=== PATIENT | female | born 1955 | race Caucasian/White ===

== ENCOUNTER → 2017-09-15 | Outpatient (CLI) | payer BC | LOC: M RAD 12:16 | DX: J01.00 Acute maxillary sinusitis, unspecified (principal) | CPT/HCPCS: 70486 ==

== ENCOUNTER → 2017-11-07 | Outpatient (REF) | payer BC ==
[2017-11-09 14:39] LABS: HPV HYBRID CAPTURE II Negative (Negative)
== END ==
LOC: M SFHCCAPE 09:39
DX: Z01.419 Encounter for gynecological examination (general) (routine) without abnormal findings (principal); Z11.51 Encounter for screening for human papillomavirus (HPV); N95.2 Postmenopausal atrophic vaginitis
CPT/HCPCS: G0123

== ENCOUNTER → 2017-11-29 | Outpatient (CLI) | payer BC | LOC: M WHC 10:13 | DX: Z12.31 Encounter for screening mammogram for malignant neoplasm of breast (principal) | CPT/HCPCS: 77067 ==

== ENCOUNTER → 2018-01-05 | Outpatient (REF) | payer BC ==
[2018-01-05 17:34] LABS: IMMUNOGLOBULIN G 821 MG/DL (681-1648)
[2018-01-05 17:47] LABS: BASO % 0.3 % (0.0-1.0); EOS # 0.2 10^3/uL (0.0-0.50); EOS % 2.6 % (0.0-3.0); HEMATOCRIT 44.1 % (36.0-47.0); HEMOGLOBIN 13.9 g/dl (12.0-15.5); IMMATURE GRANULOCYTE % 0.3 % (0-3.0); LYMPH # 2.6 10^3/uL (1.5-4.5); LYMPH % 34.4 % (24.0-44.0); MEAN CORPUSCULAR HEMOGLOBIN 30.2 pg (27.0-33.0); MEAN CORPUSCULAR HGB CONC 31.5 g/dl (32.0-36.5); MEAN CORPUSCULAR VOLUME 95.7 fl (80.0-96.0); MONO # 0.4 10^3/uL (0.0-0.8); MONO % 5.4 % (0.0-5.0); NEUTROPHILS # 4.3 10^3/uL (1.8-7.7); PLATELET COUNT, AUTOMATED 227 10^3/uL (150-450); RED BLOOD COUNT 4.61 10^6/uL (4.00-5.40); RED CELL DISTRIBUTION WIDTH 14.1 % (11.5-14.5); WHITE BLOOD COUNT 7.6 10^3/uL (4.0-10.0)
[2018-01-05 18:02] LABS: IMMUNOGLOBULIN E < 3.6 IU/ML (<100)
[2018-01-05 22:17] LABS: RUBELLA IgG QUALITATIVE IMMUNE (IMMUNE)
[2018-01-11 14:18] LABS: ANTI TETANUS ANTIBODY 1.04 IU/mL (<0.10); IMMUNOGLOBULIN D 1.14 mg/dL (<14.11); STREP PNEUMO TYPE 12F <0.1 ug/mL (>1.3); STREP PNEUMO TYPE 19A 0.5 ug/mL (>1.3); STREP PNEUMO TYPE 19F 0.6 ug/mL (>1.3); STREP PNEUMO TYPE 23F 0.6 ug/mL (>1.3); STREP PNEUMO TYPE 3 0.1 ug/mL (>1.3); STREP PNEUMO TYPE 4 0.1 ug/mL (>1.3); STREP PNEUMO TYPE 6B 0.3 ug/mL (>1.3); STREP PNEUMO TYPE 7F 0.1 ug/mL (>1.3); STREP PNEUMO TYPE 8 <0.1 ug/mL (>1.3); STREP PNEUMO TYPE 9N <0.1 ug/mL (>1.3); STREP PNEUMO TYPE 9V 0.5 ug/mL (>1.3)
== END ==
LOC: M SMT PRO 17:03
DX: D84.9 Immunodeficiency, unspecified (principal); J31.0 Chronic rhinitis

== ENCOUNTER → 2018-01-18 | Outpatient (CLI) | payer BC | LOC: M EKG 11:13 | DX: Z01.818 Encounter for other preprocedural examination (principal) | CPT/HCPCS: 93005 ==

== ENCOUNTER 2018-01-25 08:58 | Day surgery (SDC) | payer BC ==
[2018-01-25] MEDS ORDERED: MIDAZOLAM INJ 2 MG/2 ML VIAL (J2250) As Ordered ×2 (09:26)
[2018-01-25] MEDS ORDERED: ONDANSETRON 4MG/2ML VIAL (J2405) As Ordered ×2 (09:27)
[2018-01-25] MEDS ORDERED: fentaNYL 100 MCG/2 ML INJECTION (J3010) As Ordered ×4 (09:27→12:44)
[2018-01-25] MEDS ORDERED: dexameTHASONE 4 MG/ML 1ML VIAL (J1100) As Ordered ×4 (09:27)
[2018-01-25] MEDS ORDERED: LIDOCAINE 2% INJ 100 MG/5 ML SDV (FOR ANES.) As Ordered ×2 (09:27)
[2018-01-25] MEDS ORDERED: PROPOFOL 200 MG/20 ML VIAL As Ordered ×2 (09:28)
[2018-01-25] MEDS: LR 1,000 ML IV ×4 (10:00→13:27)
[2018-01-25] MEDS ORDERED: SCOPOLAMINE 1MG TRANSDERMAL PATCH As Ordered ×2 (10:37)
[2018-01-25] MEDS: SCOPOLAMINE 1MG TRANSDERMAL PATCH TOP ×2 (10:42)
[2018-01-25] MEDS ORDERED: EPINEPHrine 1MG/ML INJ 30ML MD-VIAL As Ordered ×2 (12:20)
[2018-01-25] MEDS ORDERED: PHENYLephrine HCL 500 MCG/5 ML (100MCG/ML) SYRINGE (J2370) As Ordered ×2 (12:53)
[2018-01-25] MEDS: EPINEPHrine INJ 1 MG/ML 1ML AMP As Ordered ×2 (13:05)
[2018-01-25] MEDS: EPINEPHrine 1MG/ML INJ 30ML MD-VIAL As Ordered ×2 (13:05)
[2018-01-25] MEDS: METHYLENE BLUE 0.5% (5MG/ML) 10 ML AMP (PROVAYBLUE)(Q9968 PER 1MG) As Ordered ×2 (13:05)
[2018-01-25] MEDS ORDERED: NEOSTIGMINE 10 MG/10 ML VIAL (J2710) As Ordered ×2 (13:10)
[2018-01-25] MEDS ORDERED: GLYCOPYRROLATE INJ 0.2 MG/ML 2 ML VIAL As Ordered ×2 (13:10)
[2018-01-25] MEDS: LIDOCAINE W/EPINEPHRINE 1% 20ML VIAL As Ordered ×2 (13:15)
[2018-01-25] MEDS ORDERED: ROCURONIUM BROMIDE 50 MG/5 ML VIAL As Ordered ×2 (13:36)
[2018-01-25] MEDS ORDERED: SUCCINYLCHOLINE 100 MG/5 ML SYRINGE (J0330) As Ordered ×2 (13:36)
[2018-01-25] MEDS ORDERED: HYDROMORPHONE HCL 0.5 MG/ 0.5 ML SYRINGE (J1170 PER 1) As Ordered ×2 (13:39)
[2018-01-25] MEDS: HYDROMORPHONE HCL 0.5 MG/ 0.5 ML SYRINGE (J1170 PER 1) IV ×6 (13:40→13:55)
[2018-01-25] MEDS ORDERED: ONDANSETRON 4MG/2ML VIAL (J2405) IV ×2 (13:45)
[2018-01-25] MEDS ORDERED: ACETAMINOPH W/CODEINE #3 TAB UD PO ×2 (13:45)
[2018-01-25] MEDS ORDERED: LR 1,000 ML IV ×2 (13:45)
== END 2018-01-25 17:00 | disposition home or self-care (01) ==
LOC: M SDC 08:58
DX: J32.8 Other chronic sinusitis (principal); J34.2 Deviated nasal septum; J01.01 Acute recurrent maxillary sinusitis; M12.9 Arthropathy, unspecified; F41.9 Anxiety disorder, unspecified; R06.83 Snoring; G47.33 Obstructive sleep apnea (adult) (pediatric); T88.4XXA Failed or difficult intubation, initial encounter; Z88.0 Allergy status to penicillin; Z88.2 Allergy status to sulfonamides; Z88.5 Allergy status to narcotic agent; Z88.8 Allergy status to other drugs, medicaments and biological substances; Z91.013 Allergy to seafood; Z79.899 Other long term (current) drug therapy
CPT/HCPCS: 30130

== ENCOUNTER → 2018-02-15 | Outpatient (CLI) | payer BC ==
[2018-02-20 14:16] LABS: STREP PNEUMO TYPE 1 >53.8 ug/mL (>1.3); STREP PNEUMO TYPE 12F <0.1 ug/mL (>1.3); STREP PNEUMO TYPE 14 20.3 ug/mL (>1.3); STREP PNEUMO TYPE 18C 8.2 ug/mL (>1.3); STREP PNEUMO TYPE 19A 2.3 ug/mL (>1.3); STREP PNEUMO TYPE 19F 4.4 ug/mL (>1.3); STREP PNEUMO TYPE 23F 0.5 ug/mL (>1.3); STREP PNEUMO TYPE 3 0.8 ug/mL (>1.3); STREP PNEUMO TYPE 4 0.6 ug/mL (>1.3); STREP PNEUMO TYPE 6B 0.6 ug/mL (>1.3); STREP PNEUMO TYPE 7F 2.6 ug/mL (>1.3); STREP PNEUMO TYPE 8 1.6 ug/mL (>1.3); STREP PNEUMO TYPE 9N 0.3 ug/mL (>1.3); STREP PNEUMO TYPE 9V 9.7 ug/mL (>1.3)
== END ==
LOC: M SMT 10:23
DX: D84.9 Immunodeficiency, unspecified (principal)
CPT/HCPCS: 86609

== ENCOUNTER → 2018-11-27 | Outpatient (CLI) | payer BC ==
[~2018-11-27] MED LIST: CALC600T27 PO; DOXY200C PO; ESCI10TA2 PO; FISH120016 PO; MULTCAP PO; PRED5CON PO; PREDNISONE; PROBCAP14 PO
--- NOTE | 2018-11-27 14:02 | REP ---
Left hand four views: There are no comparisons. There is diffuse demineralization. There is osteoarthritis of the PIP and DIP articulations. The MCP articulations are unremarkable. There is no fracture or dislocation. No calcifications or foreign bodies. Impression: Osteoarthritis. Demineralization. Electronically Signed by Leonardo Hudson MD 11/27/2018 01:53 P
--- NOTE | 2018-11-27 14:03 | REP ---
Right knee five views: There is tricompartment osteoarthritis. Mineralization is normal. There is no joint effusion. There are no calcifications or foreign bodies. Impression: Tricompartment osteoarthritis. Electronically Signed by Leonardo Hudson MD 11/27/2018 01:54 P
== END ==
LOC: M WUC 11:50
PROVIDERS: ATTEND Physician Assistant
DX: M25.561 Pain in right knee (principal); S69.92XA Unspecified injury of left wrist, hand and finger(s), initial encounter; W18.30XA Fall on same level, unspecified, initial encounter; Y92.009 Unspecified place in unspecified non-institutional (private) residence as the place of occurrence of the external cause

== ENCOUNTER → 2018-11-29 | Outpatient (CLI) | payer BC ==
[2018-11-29 13:07] LABS: BASO % 0.4 % (0.0-1.0); EOS # 0.1 10^3/uL (0.0-0.50); HEMATOCRIT 43.3 % (36.0-47.0); HEMOGLOBIN 13.9 g/dl (12.0-15.5); LYMPH # 2.4 10^3/uL (1.5-4.5); LYMPH % 46.6 % (24.0-44.0); MEAN CORPUSCULAR HEMOGLOBIN 30.7 pg (27.0-33.0); MEAN CORPUSCULAR HGB CONC 32.1 g/dl (32.0-36.5); MEAN CORPUSCULAR VOLUME 95.6 fl (80.0-96.0); MONO # 0.3 10^3/uL (0.0-0.8); MONO % 6.5 % (0.0-5.0); NEUTROPHILS # 2.2 10^3/uL (1.8-7.7); NEUTROPHILS % 44.3 % (36.0-66.0); PLATELET COUNT, AUTOMATED 216 10^3/uL (150-450); RED BLOOD COUNT 4.53 10^6/uL (4.00-5.40)
[2018-11-29 13:34] LABS: ALBUMIN 3.5 GM/DL (3.2-5.2); ALT/SGPT 17 U/L (12-78); BILIRUBIN,TOTAL 0.6 MG/DL (0.2-1.0); BLOOD UREA NITROGEN 15 MG/DL (7-18); CALCIUM LEVEL 9.3 MG/DL (8.8-10.2); CARBON DIOXIDE LEVEL 30 MEQ/L (21-32); CHLORIDE LEVEL 106 MEQ/L (98-107); CHOLESTEROL LEVEL 257 MG/DL (<200); CHOLESTEROL RISK RATIO 2.734 (<5); CREATININE FOR GFR 0.63 MG/DL (0.55-1.30); GLOMERULAR FILTRATION RATE > 60.0 (>45); GLUCOSE, FASTING 97 MG/DL (70-100); HDL CHOLESTEROL 94 MG/DL (>40); LDL CHOLESTEROL 145 MG/DL (<100); NON-HDL-C 163 MG/DL; POTASSIUM SERUM 4.5 MEQ/L (3.5-5.1); SODIUM LEVEL 141 MEQ/L (136-145); TOTAL 25(OH) VITAMIN D 33.9 NG/ML (30.0-100.0); TOTAL PROTEIN 6.7 GM/DL (6.4-8.2); TRIGLYCERIDES LEVEL 89 MG/DL (<150)
[2018-11-29 13:36] LABS: HEMOGLOBIN A1c 5.4 %
== END ==
LOC: M SMT 10:01
PROVIDERS: ATTEND Physician Assistant
DX: R68.2 Dry mouth, unspecified (principal); E78.5 Hyperlipidemia, unspecified; M85.88 Other specified disorders of bone density and structure, other site

== ENCOUNTER → 2018-11-30 | Outpatient (CLI) | payer BC ==
--- NOTE | 2018-11-30 13:26 | REP ---
BILATERAL SCREENING DIGITAL MAMMOGRAM WITH 3D TOMOSYNTHESIS: There are no palpable abnormalities or other breast complaints. The the patient states she had a clinical breast examination November, The the patient states she performs self-breast examinations 12 times per year The Tyrer-Cuzick Score is: 8.5% . The patient has stereotactic guided biopsy of the left breast in March 02, 2015. Results were benign. Comparison is 01/06/2014. There are scattered areas of fibroglandular density. There is no dominant mass, micro calcific cluster or architectural distortion that would indicate malignancy. There is a biopsy marking clip in the left breast. There are no additional findings on 3D tomosynthesiss. There is no change from the prior study. Impression: BIRADS/ACR category 1 mammogram. Negative. Recommendation: Routine annual screening mammography. This mammogram was interpreted with the aid of a FDA approved computer-aided detection system. A. Negative mammogram reports should not delay biopsy if a dominant or clinically suspicious mass is present. B. Not all breast cancers are identified by mammography or tomosynthesis. C. Adenosis and dense breasts may obscure an underlying neoplasm. Patient letter M1. Electronically Signed by Leonardo Hudson MD 11/30/2018 01:17 P
== END ==
LOC: M WHC 11:14
PROVIDERS: ATTEND Physician Assistant
DX: Z12.31 Encounter for screening mammogram for malignant neoplasm of breast (principal)

== ENCOUNTER 2019-01-21 11:44 | Day surgery (SDC) | payer BC ==
[~2019-01-21] VITALS: Ht 170.2 cm; Wt 81.6 kg
[~2019-01-21 11:44] MED LIST changes: +LIDOCAINE 2% INJ 100 MG/5 ML SDV (FOR ANES.) As Ordered ONE; +NS 1,000 ML IV ONE; +PROPOFOL 200 MG/20 ML VIAL As Ordered ONE
--- NOTE | 2019-01-21 14:04 | ROOR ---
Patient Name: Ko Lu Procedure Date: 01/21/2019 1:40 PM Date of : 1955 Age: 63 Room: [facility] Gender: Female Note Status: Finalized Procedure: Total Colonoscopy to Cecum Indications: Colon cancer screening in patient at increased risk: Family history of 1st-degree relative with colon polyps, Last colonoscopy: 2012 Providers: Marek Esquivel MD Referring MD: JULIA Martinez [id number] Requesting Provider: Medicines: Monitored Anesthesia Care Complications: No immediate complications. Procedure: Pre-Anesthesia Assessment: - The heart rate, respiratory rate, oxygen saturations, blood pressure, adequacy of pulmonary ventilation, and response to care were monitored throughout the procedure. The Colonoscope was introduced through the anus and advanced to the cecum, identified by appendiceal orifice and ileocecal valve. The colonoscopy was performed without difficulty. The patient tolerated the procedure well. The quality of the bowel preparation was excellent. Findings: The perianal and digital rectal examinations were normal. Non-bleeding internal hemorrhoids were found during retroflexion. The hemorrhoids were small and Grade I (internal hemorrhoids that do not prolapse). Scattered small-mouthed diverticula were found in the recto-sigmoid colon, sigmoid colon and descending colon. The exam was otherwise without abnormality on direct and retroflexion views. Impression: - Non-bleeding internal hemorrhoids. - Diverticulosis in the recto-sigmoid colon, in the sigmoid colon and in the descending colon. - The examination was otherwise normal on direct and retroflexion views. - No specimens collected. - The exam was otherwise normal to the cecum. Recommendation: - Patient has a contact number available for emergencies. The signs and symptoms of potential delayed complications were discussed with the patient. Return to normal activities tomorrow. Written discharge instructions were provided to the patient. - High fiber diet. - Discharge patient to home. - Continue present medications. - Repeat colonoscopy in 5 years for screening purposes. - Return to referring physician. - The findings and recommendations were discussed with the patient's family. Marek Esquivel MD Marek Esquivel MD 01/21/2019 2:03:54 PM Electronically signed by Marek Esquivel MD Number of Addenda: 0 Note Initiated On: 01/21/2019 1:40 PM Estimated Blood Loss: Estimated blood loss: none.
[2019-01-21 14:32] VITALS: BP 115/69
== END 2019-01-21 14:25 | disposition home or self-care (01) ==
LOC: M OPP 11:44
PROVIDERS: ATTEND Internal Medicine Gastroenterology
DX: Z12.11 Encounter for screening for malignant neoplasm of colon (principal); Z83.71 Family history of colonic polyps; K57.30 Diverticulosis of large intestine without perforation or abscess without bleeding; G47.30 Sleep apnea, unspecified; Z79.899 Other long term (current) drug therapy; Z88.0 Allergy status to penicillin; Z88.2 Allergy status to sulfonamides; Z88.5 Allergy status to narcotic agent; Z91.013 Allergy to seafood

== ENCOUNTER → 2019-09-19 | Outpatient (CLI) | payer MEDICARE ==
[~2019-09-19] MED LIST changes: -LIDOCAINE 2% INJ 100 MG/5 ML SDV (FOR ANES.) As Ordered ONE; -NS 1,000 ML IV ONE; -PROPOFOL 200 MG/20 ML VIAL As Ordered ONE
--- NOTE | 2019-09-19 15:21 | REP ---
RIGHT SHOULDER, THREE VIEWS: Three views of the right shoulder performed. There is no fracture or dislocation. There is moderate narrowing and spurring at the acromioclavicular joint. There appears to be very mild spurring of the glenoid. IMPRESSION: Degenerative changes as above. Electronically Signed by Leonardo Curry MD 09/19/2019 03:43 P
--- NOTE | 2019-09-19 15:24 | REP ---
CERVICAL SPINE SERIES: AP views of the cervical spine are performed including flexion and extension lateral views. There is no compression fracture. There is normal lumbar lordosis and no prevertebral soft tissues swelling. There is no significant subluxation with flexion and extension. There is mild spurring both anteriorly and posteriorly at C5 through C7. There is slight disc space narrowing at C4-5. There is moderate narrowing with subchondral sclerosis at C5-6, C6-7. Diffuse narrowing and sclerosis of the posterior facet joints. Uncovertebral spurring appears to cause mild to moderate bilateral foraminal narrowing at C5-6 and C6-7. IMPRESSION: Arthritic changes as above, most significantly at C5-6 and C6-7 with apparent bilateral foraminal narrowing at those levels. Electronically Signed by Leonardo Curry MD 09/19/2019 03:43 P
== END ==
LOC: M CLY 14:06
PROVIDERS: ATTEND Physician Assistant
DX: M19.011 Primary osteoarthritis, right shoulder (principal); M50.321 Other cervical disc degeneration at C4-C5 level; M50.322 Other cervical disc degeneration at C5-C6 level; M50.323 Other cervical disc degeneration at C6-C7 level; M25.78 Osteophyte, vertebrae; M25.511 Pain in right shoulder; G89.29 Other chronic pain

== ENCOUNTER → 2019-11-11 | Outpatient (REF) | payer MEDICARE | LOC: M SFHCCLAY 11:08 | PROVIDERS: ATTEND Physician Assistant | DX: Z12.4 Encounter for screening for malignant neoplasm of cervix (principal); N95.8 Other specified menopausal and perimenopausal disorders | CPT/HCPCS: 87624; G0123 ==

== ENCOUNTER → 2019-11-18 | Outpatient (REF) | payer MEDICARE ==
[2019-11-18 17:21] LABS: BASO % 0.5 % (0.0-1.0); EOS # 0.2 10^3/uL (0.0-0.5); EOS % 2.6 % (0.0-3.0); HEMATOCRIT 41.4 % (36.0-47.0); HEMOGLOBIN 13.1 g/dl (12.0-15.5); LYMPH # 2.6 10^3/uL (1.5-5.0); LYMPH % 44.9 % (24.0-44.0); MEAN CORPUSCULAR HEMOGLOBIN 30.2 pg (27.0-33.0); MEAN CORPUSCULAR HGB CONC 31.6 g/dl (32.0-36.5); MEAN CORPUSCULAR VOLUME 95.4 fl (80.0-96.0); MONO # 0.4 10^3/uL (0.0-0.8); MONO % 6.4 % (0.0-5.0); NEUTROPHILS # 2.6 10^3/uL (1.5-8.5); NEUTROPHILS % 45.4 % (36.0-66.0); PLATELET COUNT, AUTOMATED 205 10^3/uL (150-450); RED BLOOD COUNT 4.34 10^6/uL (4.00-5.40); WHITE BLOOD COUNT 5.7 10^3/uL (4.0-10.0)
[2019-11-18 17:36] LABS: ALBUMIN 3.5 GM/DL (3.2-5.2); ALT/SGPT 15 U/L (12-78); BILIRUBIN,TOTAL 0.7 MG/DL (0.2-1.0); BLOOD UREA NITROGEN 19 MG/DL (7-18); CALCIUM LEVEL 9.5 MG/DL (8.8-10.2); CARBON DIOXIDE LEVEL 32 MEQ/L (21-32); CHLORIDE LEVEL 106 MEQ/L (98-107); CHOLESTEROL LEVEL 258 MG/DL (<200); CHOLESTEROL RISK RATIO 3.185 (<5); CREATININE FOR GFR 0.69 MG/DL (0.55-1.30); GLOMERULAR FILTRATION RATE > 60.0 (>45); GLUCOSE, FASTING 93 MG/DL (70-100); HDL CHOLESTEROL 81 MG/DL (>40); LDL CHOLESTEROL 158 MG/DL (<100); NON-HDL-C 177 MG/DL; POTASSIUM SERUM 4.6 MEQ/L (3.5-5.1); SODIUM LEVEL 142 MEQ/L (136-145); TOTAL 25(OH) VITAMIN D 37.7 NG/ML (30.0-100.0); TOTAL PROTEIN 6.6 GM/DL (6.4-8.2); TRIGLYCERIDES LEVEL 96 MG/DL (<150)
== END ==
LOC: M SFHCCLAY 11:58
PROVIDERS: ATTEND Physician Assistant
DX: E78.5 Hyperlipidemia, unspecified (principal); M85.80 Other specified disorders of bone density and structure, unspecified site

== ENCOUNTER → 2019-12-10 | Outpatient (CLI) | payer MEDICARE ==
--- NOTE | 2020-01-14 10:55 | REPMRS ---
Patient History The patient states she had a clinical breast exam in October 2019. Patient is postmenopausal and has history of other cancer at age 56. Family history of prostate cancer at age 50 or over in maternal grandfather. Benign stereotactic core biopsy of the left breast, March 02, 2015. No Hormone Replacement Therapy Digital Woman Screen Mammo: December 10, 2019 - Exam #: [id number] Bilateral CC and MLO view(s) were taken. Technologist: Cassy Cardoza, Technologist Prior study comparison: November 30, 2018, bilateral digital woman screen mammo performed at [facility]. November 29, 2017, bilateral digital woman screen mammo performed at [facility]. March 14, 2016, bilateral digital mammo screening bilat, performed at [facility]. FINDINGS: There are scattered fibroglandular densities. The Volpara volumetric breast density category is:B. There is a needle biopsy marker clip in the left breast. There has been no change in the appearance of the mammogram from the prior studies. There is a mild amount of scattered fibroglandular density which is fairly symmetric. There is no interval development of dominant mass, architectural distortion, or grouped microcalcification suggestive of malignancy. 3-D tomosynthesis shows no additional findings. Report was delayed due to a protracted network disruption experienced by this facility. Assessment: BI-RADS/ACR category 2 mammogram. Benign Findings. Recommendation Routine screening mammogram of both breasts in 1 year (for women over age 40). This patient's Lifetime Breast Cancer Risk is estimated at 8.1 %. This mammogram was interpreted with the aid of an FDA-approved computer-aided dectection system. Electronically Signed By: Migel Gonzalez MD 01/14/20 [id number]
--- NOTE | 2020-01-14 12:53 | DEXA ---
AP SPINE L2 - L4 0.992 -1.6 0.0 LT FEMUR TOTAL 0.884 -1.0 0.2 LT NECK 0.827 -1.5 0.0 RT FEMUR TOTAL 0.811 -1.6 -0.3 RT NECK 0.810 -1.6 -0.2 TOTAL BODY TOTAL OTHER COMMENTS: There is low bone density of the spine and hips. FOLLOW-UP: Recommendation for the next bone density exam: 2 years. ED
== END ==
LOC: M WHC 16:55
PROVIDERS: ATTEND Physician Assistant
DX: Z12.31 Encounter for screening mammogram for malignant neoplasm of breast (principal); Z78.0 Asymptomatic menopausal state; Z85.9 Personal history of malignant neoplasm, unspecified; Z86.018 Personal history of other benign neoplasm

== ENCOUNTER → 2020-11-13 | Outpatient (CLI) | payer MEDICARE ==
[~2020-11-13] MED LIST changes: +ESCI10TA16 PO; -ESCI10TA2 PO
--- NOTE | 2020-11-13 09:33 | REPVR ---
PROCEDURE INFORMATION: Exam: CT Maxillofacial Without Contrast, Sinus Exam date and time: 11/13/2020 8:56 AM Age: 65 years old Clinical indication: Sinusitis; Chronic; Additional info: Chronic sinusitis TECHNIQUE: Imaging protocol: CT Maxillofacial without contrast. Focus on the sinuses. Radiation optimization: All CT scans at this facility use at least one of these dose optimization techniques: automated exposure control; mA and/or kV adjustment per patient size (includes targeted exams where dose is matched to clinical indication); or iterative reconstruction. COMPARISON: CT Maxilofacial w/out contrast 09/15/2017 12:23 PM FINDINGS: Frontal sinuses: Normal. No air-fluid levels. Ethmoid air cells: Patient appears to be status post bilateral maxillary antrostomies and partial bilateral ethmoidectomies. No air-fluid levels. No mucosal thickening. Sphenoid sinuses: Normal. No air-fluid levels. Maxillary sinuses: Patient appears to be status post bilateral maxillary antrostomies and partial bilateral ethmoidectomies. No air-fluid level or mucosal thickening in the maxillary sinuses. Nasal cavity/Septum: Apparent partial resection of the deviated nasal septum. No significant residual deviation. Orbital cavity: Orbits are normal. Globes are unremarkable. Bones/joints: Degenerative remodeling of the temporomandibular joints. Soft tissues: Unremarkable. Dental: Several dental restorations. IMPRESSION: No evidence of acute sinusitis. Electronically signed by: Carly Fuentes On 11/13/2020 09:33:09 AM
== END ==
LOC: M RAD 08:46
PROVIDERS: ATTEND Otolaryngology
DX: J32.9 Chronic sinusitis, unspecified (principal)

== ENCOUNTER → 2020-12-10 | Outpatient (REF) | payer MEDICARE ==
[2020-12-10 16:31] LABS: BASO % 0.4 % (0.0-1.0); EOS # 0.1 10^3/uL (0.0-0.5); EOS % 2.6 % (0.0-3.0); HEMATOCRIT 40.3 % (36.0-47.0); HEMOGLOBIN 12.8 g/dl (12.0-15.5); LYMPH # 2.3 10^3/uL (1.5-5.0); LYMPH % 45.6 % (24.0-44.0); MEAN CORPUSCULAR HEMOGLOBIN 29.9 pg (27.0-33.0); MEAN CORPUSCULAR HGB CONC 31.8 g/dl (32.0-36.5); MEAN CORPUSCULAR VOLUME 94.2 fl (80.0-96.0); MONO # 0.3 10^3/uL (0.0-0.8); MONO % 6.4 % (2.0-8.0); NEUTROPHILS # 2.3 10^3/uL (1.5-8.5); PLATELET COUNT, AUTOMATED 216 10^3/uL (150-450); RED BLOOD COUNT 4.28 10^6/uL (4.00-5.40)
[2020-12-10 16:34] LABS: ALBUMIN 3.5 GM/DL (3.2-5.2); ALT/SGPT 18 U/L (12-78); BILIRUBIN,TOTAL 0.8 MG/DL (0.2-1.0); BLOOD UREA NITROGEN 18 MG/DL (7-18); CALCIUM LEVEL 8.9 MG/DL (8.8-10.2); CARBON DIOXIDE LEVEL 31 MEQ/L (21-32); CHLORIDE LEVEL 109 MEQ/L (98-107); CHOLESTEROL LEVEL 243 MG/DL (<200); CHOLESTEROL RISK RATIO 2.892 (<5); GLOMERULAR FILTRATION RATE > 60.0 (>45); GLUCOSE, FASTING 88 MG/DL (70-100); HDL CHOLESTEROL 84 MG/DL (>40); LDL CHOLESTEROL 143 MG/DL (<100); NON-HDL-C 159 MG/DL; POTASSIUM SERUM 4.3 MEQ/L (3.5-5.1); SODIUM LEVEL 142 MEQ/L (136-145); TOTAL PROTEIN 6.4 GM/DL (6.4-8.2); TRIGLYCERIDES LEVEL 82 MG/DL (<150)
[2020-12-10 16:51] LABS: TOTAL 25(OH) VITAMIN D 37.4 NG/ML (30.0-100.0)
== END ==
LOC: M SFHCCAPE 07:51
PROVIDERS: ATTEND Physician Assistant
DX: E78.5 Hyperlipidemia, unspecified (principal); M85.80 Other specified disorders of bone density and structure, unspecified site

== ENCOUNTER → 2021-01-04 | Outpatient (REF) | payer MEDICARE | LOC: M LAB REF 18:52 | PROVIDERS: ATTEND Physician Assistant | DX: L57.0 Actinic keratosis (principal) ==

== ENCOUNTER → 2021-01-04 | Outpatient (CLI) | payer MEDICARE ==
--- NOTE | 2021-01-04 10:58 | REPMRS ---
Patient History The patient states she had a clinical breast exam in November 2020. Patient is postmenopausal and has history of other cancer at age 56. Family history of prostate cancer at age 50 or over in maternal grandfather, breast cancer at age 70 in sister. Benign stereotactic core biopsy of the left breast, March 02, 2015. No Hormone Replacement Therapy Tomosynthesis is performed. Volpara breast density is b. [facility] lifetime risk of breast cancer 14.6%. Digital Woman Screen Mammo: January 04, 2021 - Exam #: [id number] Bilateral CC and MLO view(s) were taken. Technologist: Coral Hou, Technologist Prior study comparison: December 10, 2019, bilateral digital woman screen mammo performed at [facility]. November 30, 2018, bilateral digital woman screen mammo performed at [facility]. FINDINGS: There are scattered fibroglandular densities. There has been no change in the appearance of the mammogram from the prior studies. There is a mild amount of residual fibroglandular tissue which is fairly symmetric. There is no interval development of dominant mass, architectural distortion, or clustered microcalcification suggestive of malignancy. Assessment: BI-RADS/ACR category 1 mammogram. Negative Mammogram. Recommendation Routine screening mammogram in 1 year (for women over age 40). This mammogram was interpreted with the aid of an FDA-approved computer-aided dectection system. Electronically Signed By: Leonardo Curry MD 01/04/21 1753
== END ==
LOC: M WHC 10:07
PROVIDERS: ATTEND Physician Assistant
DX: Z12.31 Encounter for screening mammogram for malignant neoplasm of breast (principal); Z78.0 Asymptomatic menopausal state; Z85.89 Personal history of malignant neoplasm of other organs and systems; Z80.3 Family history of malignant neoplasm of breast; Z86.018 Personal history of other benign neoplasm

== ENCOUNTER → 2021-01-05 | Outpatient (CLI) | payer MEDICARE ==
--- NOTE | 2021-01-05 16:11 | REPVR ---
PROCEDURE INFORMATION: Exam: MR Head Without Contrast Exam date and time: 01/05/2021 11:37 AM Age: 65 years old Clinical indication: Other: Right sided facial pain; Prior surgery; Surgery date: 6+ months; Surgery type: Bilateral tmj; Additional info: Neuroalgia TECHNIQUE: Imaging protocol: MR of the head without contrast. COMPARISON: CT Maxilofacial w/out contrast 11/13/2020 8:59 AM FINDINGS: Brain: There is no extra-axial collection or intra-axial mass. Mild diffuse volume loss is within the range of normal for patient age. There is no diffusion restriction. Cerebral ventricles: Normal. No ventriculomegaly. Bones/joints: Unremarkable. Paranasal sinuses: Normal as visualized. No acute sinusitis. Mastoid air cells: Normal as visualized. No mastoid effusion. Orbital cavity: Unremarkable. Soft tissues: Unremarkable. IMPRESSION: No acute findings. Electronically signed by: Bia Garvin On 01/05/2021 16:11:03 PM
== END ==
LOC: M PLAIMG 10:52
PROVIDERS: ATTEND Otolaryngology
DX: M79.2 Neuralgia and neuritis, unspecified (principal)

== ENCOUNTER → 2021-09-29 | Outpatient (REF) | payer MEDICARE | LOC: M SFHCDERM 18:55 | PROVIDERS: ATTEND Physician Assistant | DX: L82.0 Inflamed seborrheic keratosis (principal) ==

== ENCOUNTER → 2021-12-16 | Outpatient (REF) | payer MEDICARE ==
[2021-12-16 17:53] LABS: BASO % 0.5 % (0.0-1.0); EOS # 0.1 10^3/uL (0.0-0.5); EOS % 2.4 % (0.0-3.0); HEMATOCRIT 40.9 % (36.0-47.0); HEMOGLOBIN 13.2 g/dl (12.0-15.5); LYMPH # 2.5 10^3/uL (1.5-5.0); LYMPH % 45.4 % (24.0-44.0); MEAN CORPUSCULAR HEMOGLOBIN 29.9 pg (27.0-33.0); MEAN CORPUSCULAR HGB CONC 32.3 g/dl (32.0-36.5); MEAN CORPUSCULAR VOLUME 92.5 fl (80.0-96.0); MONO # 0.3 10^3/uL (0.0-0.8); MONO % 5.9 % (2.0-8.0); NEUTROPHILS # 2.5 10^3/uL (1.5-8.5); NEUTROPHILS % 45.6 % (36.0-66.0); PLATELET COUNT, AUTOMATED 233 10^3/uL (150-450); RED BLOOD COUNT 4.42 10^6/uL (4.00-5.40); WHITE BLOOD COUNT 5.5 10^3/uL (4.0-10.0)
[2021-12-16 21:42] LABS: ALBUMIN 3.3 GM/DL (3.2-5.2); ALT/SGPT 15 U/L (12-78); BILIRUBIN,TOTAL 0.7 MG/DL (0.2-1.0); BLOOD UREA NITROGEN 17 MG/DL (7-18); CALCIUM LEVEL 8.9 MG/DL (8.8-10.2); CARBON DIOXIDE LEVEL 28 MEQ/L (21-32); CHLORIDE LEVEL 108 MEQ/L (98-107); CHOLESTEROL LEVEL 210 MG/DL (<200); CHOLESTEROL RISK RATIO 2.441 (<5); CREATININE FOR GFR 0.68 MG/DL (0.55-1.30); GLOMERULAR FILTRATION RATE > 60.0 (>45); GLUCOSE, FASTING 85 MG/DL (70-100); HDL CHOLESTEROL 86 MG/DL (>40); LDL CHOLESTEROL 113 MG/DL (<100); NON-HDL-C 124 MG/DL; POTASSIUM SERUM 4.5 MEQ/L (3.5-5.1); SODIUM LEVEL 141 MEQ/L (136-145); TOTAL PROTEIN 6.3 GM/DL (6.4-8.2); TRIGLYCERIDES LEVEL 54 MG/DL (<150)
[2021-12-16 22:35] LABS: VITAMIN B12 LEVEL 535 PG/ML
[2021-12-16 22:36] LABS: FOLATE 8.2 NG/ML
== END ==
LOC: M SFHCCAPE 07:22
PROVIDERS: ATTEND Physician Assistant
DX: Z00.00 Encounter for general adult medical examination without abnormal findings (principal); Z79.899 Other long term (current) drug therapy

== ENCOUNTER → 2021-12-27 | Outpatient (CLI) | payer MEDICARE | LOC: M SLEEP HO 10:32 | PROVIDERS: ATTEND Physician Assistant | DX: G47.33 Obstructive sleep apnea (adult) (pediatric) (principal) ==

== ENCOUNTER → 2022-01-19 | Outpatient (CLI) | payer MEDICARE | LOC: M WHC 12:03 | PROVIDERS: ATTEND Physician Assistant | DX: Z12.31 Encounter for screening mammogram for malignant neoplasm of breast (principal) ==

== ENCOUNTER → 2022-03-01 | Outpatient (REF) | payer MEDICARE | LOC: M LAB REF 17:14 | PROVIDERS: ATTEND Otolaryngology | DX: B00.1 Herpesviral vesicular dermatitis (principal) ==

== ENCOUNTER → 2022-12-07 | Outpatient (REF) | payer MEDICARE ==
[2022-12-07 17:53] LABS: BASO % 0.5 % (0.0-1.0); EOS # 0.2 10^3/uL (0.0-0.5); EOS % 2.4 % (0.0-3.0); HEMATOCRIT 43.7 % (36.0-47.0); HEMOGLOBIN 13.6 g/dl (12.0-15.5); LYMPH # 2.5 10^3/uL (1.5-5.0); LYMPH % 39.2 % (24.0-44.0); MEAN CORPUSCULAR HEMOGLOBIN 29.2 pg (27.0-33.0); MEAN CORPUSCULAR HGB CONC 31.1 g/dl (32.0-36.5); MEAN CORPUSCULAR VOLUME 93.8 fl (80.0-96.0); MONO # 0.4 10^3/uL (0.0-0.8); MONO % 5.5 % (2.0-8.0); NEUTROPHILS # 3.3 10^3/uL (1.5-8.5); NEUTROPHILS % 52.1 % (36.0-66.0); PLATELET COUNT, AUTOMATED 242 10^3/uL (150-450); RED BLOOD COUNT 4.66 10^6/uL (4.00-5.40); WHITE BLOOD COUNT 6.3 10^3/uL (4.0-10.0)
[2022-12-07 18:20] LABS: ALBUMIN 3.4 G/DL (3.2-5.2); ALKALINE PHOSPHATASE 77 U/L (46-116); ALT/SGPT 10 U/L (7.0-40); AST/SGOT < 8 U/L (<34); BILIRUBIN,TOTAL 0.5 MG/DL (0.3-1.2); BLOOD UREA NITROGEN 17 MG/DL (9-23); CALCIUM LEVEL 9.5 MG/DL (8.3-10.6); CARBON DIOXIDE LEVEL 26 MMOL/L (20-31); CHLORIDE LEVEL 106 MMOL/L (98-107); CHOLESTEROL LEVEL 228 MG/DL (<200); CHOLESTEROL RISK RATIO 2.82 (<5); CREATININE FOR GFR 0.56 MG/DL (0.55-1.30); GLOMERULAR FILTRATION RATE > 60.0 (>45); GLUCOSE, FASTING 92 MG/DL (74-106); HDL CHOLESTEROL 80.8 MG/DL (>40); NON-HDL-C 147.2 MG/DL; POTASSIUM SERUM 4.5 MMOL/L (3.5-5.1); SODIUM LEVEL 141 MMOL/L (136-145); THYROID STIMULATING HORMONE 2.242 uIU/ML (0.55-4.78); TOTAL 25(OH) VITAMIN D 31.6 NG/ML (20.0-100.0); TOTAL PROTEIN 6.3 G/DL (5.7-8.2); TRIGLYCERIDES LEVEL 81 MG/DL (<150)
== END ==
LOC: M SFHCCAPE 07:10
PROVIDERS: ATTEND Physician Assistant
DX: Z00.00 Encounter for general adult medical examination without abnormal findings (principal); M85.80 Other specified disorders of bone density and structure, unspecified site; Z79.899 Other long term (current) drug therapy

== ENCOUNTER → 2023-01-20 | Outpatient (CLI) | payer MEDICARE | LOC: M WHC 09:10 | PROVIDERS: ATTEND Physician Assistant | DX: Z12.31 Encounter for screening mammogram for malignant neoplasm of breast (principal) ==

== ENCOUNTER 2023-09-18 11:40 | Day surgery (SDC) | payer MEDICARE ==
[~2023-09-18] VITALS: Ht 170.2 cm; Wt 78.9 kg
[~2023-09-18 11:40] MED LIST changes: +LEXA1TAB PO; +THERTAB52 PO
[2023-09-18] MEDS: NS 1,000 ML IV ONE (13:28)
[2023-09-18] MEDS ORDERED: propofoL 200 MG/20 ML VIAL As Ordered ONE (15:00)
[2023-09-18 15:33] VITALS: TEMP 97.8
[2023-09-18 15:55] VITALS: BP 130/74; O2SAT 97
== END 2023-09-18 16:01 | disposition home or self-care (01) ==
LOC: M OPP 11:40
PROVIDERS: ATTEND Internal Medicine Gastroenterology
DX: C20 Malignant neoplasm of rectum (principal); K62.5 Hemorrhage of anus and rectum; K64.0 First degree hemorrhoids; Z83.719 Family history of colon polyps, unspecified; Z86.19 Personal history of other infectious and parasitic diseases; G47.30 Sleep apnea, unspecified; F41.9 Anxiety disorder, unspecified; Z79.899 Other long term (current) drug therapy; Z88.0 Allergy status to penicillin; Z88.5 Allergy status to narcotic agent; Z88.2 Allergy status to sulfonamides; Z88.1 Allergy status to other antibiotic agents; Z88.8 Allergy status to other drugs, medicaments and biological substances; Z91.013 Allergy to seafood

== ENCOUNTER → 2023-10-05 | Outpatient (REF) | payer MEDICARE | LOC: M SFHCDERM 17:34 | PROVIDERS: ATTEND Physician Assistant | DX: D49.2 Neoplasm of unspecified behavior of bone, soft tissue, and skin (principal) ==

== ENCOUNTER → 2023-10-23 | Outpatient (CLI) | payer MEDICARE | LOC: M PLARAD 11:02 | PROVIDERS: ATTEND Specialist | DX: C20 Malignant neoplasm of rectum (principal) | CPT/HCPCS: 78815; A9552 ==

== ENCOUNTER → 2023-10-25 | Outpatient (CLI) | payer MEDICARE ==
[~2023-10-25] MED LIST changes: +PROHANCE 279.3MG/ML 15ML VIAL ONE
== END ==
LOC: M PLAIMG 08:35
PROVIDERS: ATTEND Surgery
DX: C20 Malignant neoplasm of rectum (principal)
CPT/HCPCS: 72197; A9576

== ENCOUNTER → 2023-12-07 | Outpatient (CLI) | payer MEDICARE ==
[~2023-12-07] MED LIST changes: +ISOVUE-300 61% 100ML VIAL As Ordered ONE; +LIDOCAINE 1% MDV 20ML VIAL As Ordered ONE; +MIDAZOLAM INJ 2MG/2ML VIAL As Ordered ONE; +ONDANSETRON 4MG 2ML VIAL As Ordered ONE; -PROHANCE 279.3MG/ML 15ML VIAL ONE; +fentaNYL 100 MCG/2 ML INJECTION As Ordered ONE
[2023-12-07 07:30] VITALS: TEMP 96.9
[2023-12-07 10:25] VITALS: BP 144/68; O2SAT 99
== END ==
LOC: M IRPRO 07:20
PROVIDERS: ATTEND Surgery
DX: R59.0 Localized enlarged lymph nodes (principal); C79.89 Secondary malignant neoplasm of other specified sites; C20 Malignant neoplasm of rectum
CPT/HCPCS: 38505; 76942; 77012; 88305; 99152; 99153; J2250; J2405; J3010

== ENCOUNTER → 2023-12-18 | Outpatient (REF) | payer MEDICARE ==
[~2023-12-18] MED LIST changes: +AZEL1SPR3; +CAPE1TAB2 PO; +CENT1TAB PO; +FLUO56GE6; -ISOVUE-300 61% 100ML VIAL As Ordered ONE; -LIDOCAINE 1% MDV 20ML VIAL As Ordered ONE; -MIDAZOLAM INJ 2MG/2ML VIAL As Ordered ONE; -ONDANSETRON 4MG 2ML VIAL As Ordered ONE; +PERI12LIQ; +VALA500T5 PO; +ZOVI5CRE4 TOP; -fentaNYL 100 MCG/2 ML INJECTION As Ordered ONE
[2023-12-18 18:28] LABS: BASO % 0.3 % (0.0-1.0); EOS # 0.1 10^3/uL (0.0-0.5); EOS % 2.2 % (0.0-3.0); HEMATOCRIT 40.2 % (36.0-47.0); HEMOGLOBIN 12.7 g/dl (12.0-15.5); LYMPH # 2.4 10^3/uL (1.5-5.0); LYMPH % 40.7 % (24.0-44.0); MEAN CORPUSCULAR HEMOGLOBIN 28.4 pg (27.0-33.0); MEAN CORPUSCULAR HGB CONC 31.6 g/dl (32.0-36.5); MEAN CORPUSCULAR VOLUME 89.9 fl (80.0-96.0); MONO # 0.4 10^3/uL (0.0-0.8); MONO % 6.7 % (2.0-8.0); NEUTROPHILS # 2.9 10^3/uL (1.5-8.5); NEUTROPHILS % 49.9 % (36.0-66.0); PLATELET COUNT, AUTOMATED 312 10^3/uL (150-450); RED BLOOD COUNT 4.47 10^6/uL (4.00-5.40); WHITE BLOOD COUNT 5.8 10^3/uL (4.0-10.0)
[2023-12-18 18:55] LABS: ALBUMIN 3.3 G/DL (3.2-5.2); ALKALINE PHOSPHATASE 107 U/L (46-116); ALT/SGPT 13 U/L (7.0-40); AST/SGOT 10 U/L (<34); BILIRUBIN,TOTAL 0.6 MG/DL (0.3-1.2); BLOOD UREA NITROGEN 17 MG/DL (9-23); CALCIUM LEVEL 9.2 MG/DL (8.3-10.6); CARBON DIOXIDE LEVEL 28 MMOL/L (20-31); CHLORIDE LEVEL 107 MMOL/L (98-107); CHOLESTEROL LEVEL 192 MG/DL (<200); CHOLESTEROL RISK RATIO 3.16 (<5); CREATININE FOR GFR 0.58 MG/DL (0.55-1.30); GLOMERULAR FILTRATION RATE > 60.0 (>45); GLUCOSE, FASTING 91 MG/DL (74-106); HDL CHOLESTEROL 60.6 MG/DL (>40); NON-HDL-C 131.4 MG/DL; POTASSIUM SERUM 4.5 MMOL/L (3.5-5.1); SODIUM LEVEL 138 MMOL/L (136-145); TOTAL PROTEIN 6.7 G/DL (5.7-8.2); TRIGLYCERIDES LEVEL 82 MG/DL (<150)
[2023-12-18 18:57] LABS: TOTAL 25(OH) VITAMIN D 42.9 NG/ML (20.0-100.0)
== END ==
LOC: M SFHCCAPE 07:09
PROVIDERS: ATTEND Physician Assistant Medical
DX: Z00.00 Encounter for general adult medical examination without abnormal findings (principal); E78.5 Hyperlipidemia, unspecified; M85.80 Other specified disorders of bone density and structure, unspecified site; F41.9 Anxiety disorder, unspecified

== ENCOUNTER → 2023-12-28 | Outpatient (CLI) | payer MEDICARE ==
[~2023-12-28] MED LIST changes: +CLIN150C17 PO; +FAMO20TA PO; +LIDO30CR18 TOP; +ONDA-284 PO; +ONDA-83 PO; +PROC10TA5 PO
== END ==
LOC: M ONCR 12:33
PROVIDERS: ATTEND General Practice
DX: C20 Malignant neoplasm of rectum (principal); Z80.3 Family history of malignant neoplasm of breast; Z79.899 Other long term (current) drug therapy; Z88.0 Allergy status to penicillin; Z88.1 Allergy status to other antibiotic agents; Z88.2 Allergy status to sulfonamides; Z91.013 Allergy to seafood; Z88.5 Allergy status to narcotic agent; Z88.8 Allergy status to other drugs, medicaments and biological substances

== ENCOUNTER → 2024-01-08 | Outpatient (CLI) | payer MEDICARE ==
[~2024-01-08] VITALS: Ht 170.2 cm; Wt 77.1 kg
[~2024-01-08] MED LIST changes: -FAMO20TA PO; +LIDOCAINE 1% MDV 20ML VIAL As Ordered ONE; +MIDAZOLAM INJ 2MG/2ML VIAL As Ordered ONE; -ONDA-284 PO; -ONDA-83 PO; -PROC10TA5 PO; +UNRESOLVED CLARIFICATION ENTRY XX SCH; +VANCOMYCIN 1000MG/20ML VIAL As Ordered ONE; +diphenhydrAMINE 50MG/ML VIAL As Ordered ONE; +fentaNYL 100 MCG/2 ML INJECTION As Ordered ONE
[2024-01-08 12:28] VITALS: TEMP 96
[2024-01-08] MEDS: NS 1,000 ML IV SCH (12:46)
[2024-01-08] MEDS: VANCOMYCIN HCL 1,000 MG, VIAL MATE ADAPTER 1 EACH in NS 250 ML IV ONE (12:47)
[2024-01-08] MEDS: diphenhydrAMINE 50MG/ML VIAL IV STA (14:19)
[2024-01-08 14:30] VITALS: BP 139/65; O2SAT 98
== END ==
LOC: M IRPRO 12:08
PROVIDERS: ATTEND Specialist
DX: C20 Malignant neoplasm of rectum (principal)
CPT/HCPCS: 36561; 99152; 99153; C1769; J1200; J2250; J3010; J3370

== ENCOUNTER 2024-01-12 15:26 | Outpatient (RCR) | payer MEDICARE ==
[~2024-01-12 15:26] MED LIST changes: -LIDOCAINE 1% MDV 20ML VIAL As Ordered ONE; -MIDAZOLAM INJ 2MG/2ML VIAL As Ordered ONE; +ONDA-83 PO; -UNRESOLVED CLARIFICATION ENTRY XX SCH; -VANCOMYCIN 1000MG/20ML VIAL As Ordered ONE; -diphenhydrAMINE 50MG/ML VIAL As Ordered ONE; -fentaNYL 100 MCG/2 ML INJECTION As Ordered ONE
[2024-01-16] MEDS ORDERED: FAMO20TA PO (16:19)
[2024-01-16] MEDS ORDERED: ONDA-284 PO (16:19)
[2024-01-16] MEDS ORDERED: PROC10TA5 PO (16:19)
== END 2024-01-13 ==
LOC: M ONCR 15:26
PROVIDERS: ATTEND General Practice
DX: Z51.0 Encounter for antineoplastic radiation therapy (principal); C20 Malignant neoplasm of rectum

== ENCOUNTER → 2024-01-22 | Outpatient (REF) | payer MEDICARE ==
[~2024-01-22] MED LIST changes: +FAMO20TA PO; +ONDA-284 PO; +PROC10TA5 PO
[2024-01-22 17:39] LABS: BASO % 0.3 % (0.0-1.0); EOS # 0.3 10^3/uL (0.0-0.5); HEMATOCRIT 36.2 % (36.0-47.0); HEMOGLOBIN 11.4 g/dl (12.0-15.5); LYMPH # 0.8 10^3/uL (1.5-5.0); MEAN CORPUSCULAR HEMOGLOBIN 29.1 pg (27.0-33.0); MEAN CORPUSCULAR HGB CONC 31.5 g/dl (32.0-36.5); MEAN CORPUSCULAR VOLUME 92.3 fl (80.0-96.0); MONO # 0.3 10^3/uL (0.0-0.8); MONO % 7.8 % (2.0-8.0); NEUTROPHILS # 2.2 10^3/uL (1.5-8.5); NEUTROPHILS % 60.3 % (36.0-66.0); PLATELET COUNT, AUTOMATED 204 10^3/uL (150-450); RED BLOOD COUNT 3.92 10^6/uL (4.00-5.40); WHITE BLOOD COUNT 3.6 10^3/uL (4.0-10.0)
[2024-01-22 18:01] LABS: ALBUMIN 3.1 G/DL (3.2-5.2); ALKALINE PHOSPHATASE 76 U/L (46-116); ALT/SGPT < 9 U/L (7.0-40); AST/SGOT < 8 U/L (<34); BILIRUBIN,TOTAL 0.3 MG/DL (0.3-1.2); BLOOD UREA NITROGEN 14 MG/DL (9-23); CALCIUM LEVEL 9.2 MG/DL (8.3-10.6); CARBON DIOXIDE LEVEL 28 MMOL/L (20-31); CHLORIDE LEVEL 110 MMOL/L (98-107); CREATININE FOR GFR 0.63 MG/DL (0.55-1.30); GLOMERULAR FILTRATION RATE > 60.0 (>45); GLUCOSE, FASTING 87 MG/DL (74-106); MAGNESIUM LEVEL 1.9 MG/DL (1.8-2.4); POTASSIUM SERUM 3.8 MMOL/L (3.5-5.1); SODIUM LEVEL 140 MMOL/L (136-145)
== END ==
LOC: M LABDRWCV 16:42
PROVIDERS: ATTEND Specialist
DX: C20 Malignant neoplasm of rectum (principal)

== ENCOUNTER → 2024-02-08 | Outpatient (CLI) | payer MEDICARE | LOC: M WHC 13:44 | PROVIDERS: ATTEND Physician Assistant Medical | DX: Z12.31 Encounter for screening mammogram for malignant neoplasm of breast (principal) ==

== ENCOUNTER → 2024-02-12 | Outpatient (RCR) | payer MEDICARE ==
[~2024-02-12] MED LIST changes: +DIPH1TAB81 PO; +SUCR1TA PO
== END ==
LOC: M ONCR 01-16 15:53
PROVIDERS: ATTEND General Practice
DX: Z51.0 Encounter for antineoplastic radiation therapy (principal); C20 Malignant neoplasm of rectum

== ENCOUNTER → 2024-03-07 | Outpatient (CLI) | payer MEDICARE ==
[~2024-03-07] MED LIST changes: +FLUC100T3 PO; +POTA1TAB24 PO; +PROHANCE 279.3MG/ML 15ML VIAL As Ordered ONE
== END ==
LOC: M RAD 10:23
PROVIDERS: ATTEND Dietitian, Registered
DX: C20 Malignant neoplasm of rectum (principal); R59.0 Localized enlarged lymph nodes
CPT/HCPCS: 72197; A9576

== ENCOUNTER 2024-03-12 15:05 | Outpatient (RCR) | payer MEDICARE | END 2024-03-14 | LOC: M ONCR 15:05 | PROVIDERS: ATTEND General Practice | DX: Z51.0 Encounter for antineoplastic radiation therapy (principal); C20 Malignant neoplasm of rectum ==

== ENCOUNTER → 2024-03-12 | Outpatient (REF) | payer MEDICARE ==
[~2024-03-12] MED LIST changes: -PROHANCE 279.3MG/ML 15ML VIAL As Ordered ONE
[2024-03-12 17:20] LABS: BASO % 0.3 % (0.0-1.0); EOS # 0.1 10^3/uL (0.0-0.5); HEMATOCRIT 39.6 % (36.0-47.0); HEMOGLOBIN 12.4 g/dl (12.0-15.5); LYMPH # 1.3 10^3/uL (1.5-5.0); LYMPH % 36.3 % (24.0-44.0); MEAN CORPUSCULAR HEMOGLOBIN 29.9 pg (27.0-33.0); MEAN CORPUSCULAR HGB CONC 31.3 g/dl (32.0-36.5); MEAN CORPUSCULAR VOLUME 95.4 fl (80.0-96.0); MONO # 0.4 10^3/uL (0.0-0.8); MONO % 9.6 % (2.0-8.0); NEUTROPHILS # 1.8 10^3/uL (1.5-8.5); NEUTROPHILS % 50.3 % (36.0-66.0); PLATELET COUNT, AUTOMATED 225 10^3/uL (150-450); RED BLOOD COUNT 4.15 10^6/uL (4.00-5.40); WHITE BLOOD COUNT 3.7 10^3/uL (4.0-10.0)
[2024-03-12 17:52] LABS: ALBUMIN 3.1 G/DL (3.2-5.2); ALKALINE PHOSPHATASE 84 U/L (35-104); ALT/SGPT 15 U/L (7.0-40); AST/SGOT 12 U/L (<34); BILIRUBIN,TOTAL 0.4 MG/DL (0.3-1.2); BLOOD UREA NITROGEN 17 MG/DL (9-23); CALCIUM LEVEL 9.4 MG/DL (8.3-10.6); CARBON DIOXIDE LEVEL 28 MMOL/L (20-31); CHLORIDE LEVEL 108 MMOL/L (98-107); CREATININE FOR GFR 0.61 MG/DL (0.55-1.30); GLOMERULAR FILTRATION RATE > 60.0 (>39); GLUCOSE, FASTING 94 MG/DL (74-106); MAGNESIUM LEVEL 2.1 MG/DL (1.8-2.4); POTASSIUM SERUM 4.2 MMOL/L (3.5-5.1); SODIUM LEVEL 141 MMOL/L (136-145); TOTAL PROTEIN 6.4 G/DL (5.7-8.2)
== END ==
LOC: M LABDRWCV 16:32
PROVIDERS: ATTEND Specialist
DX: C20 Malignant neoplasm of rectum (principal)

== ENCOUNTER → 2024-04-16 | Outpatient (CLI) | payer MEDICARE ==
[~2024-04-16] MED LIST changes: +CIPR-249 PO; +NAPR220C14 PO; +OMEP-173 PO
== END ==
LOC: M ONCR 14:12
PROVIDERS: ATTEND General Practice
DX: C44.311 Basal cell carcinoma of skin of nose (principal); C20 Malignant neoplasm of rectum; Z92.21 Personal history of antineoplastic chemotherapy; Z92.3 Personal history of irradiation; R09.81 Nasal congestion; R09.82 Postnasal drip

== ENCOUNTER → 2024-06-03 | Outpatient (CLI) | payer MEDICARE ==
[~2024-06-03] MED LIST changes: +ATIV1TAB10 PO; +GABA-1171 PO; +HYDR-3713 PO; +LIDO5DIS41 TOP; +MORP15TA2 PO; +PROHANCE 279.3MG/ML 15ML VIAL As Ordered ONE
== END ==
LOC: M RAD 07:46
PROVIDERS: ATTEND Internal Medicine Medical Oncology
DX: C20 Malignant neoplasm of rectum (principal); M16.0 Bilateral primary osteoarthritis of hip; S73.191A Other sprain of right hip, initial encounter; S73.192A Other sprain of left hip, initial encounter; M76.02 Gluteal tendinitis, left hip; M76.01 Gluteal tendinitis, right hip
CPT/HCPCS: 73723; A9576

== ENCOUNTER → 2024-07-22 | Outpatient (CLI) | payer MEDICARE ==
[~2024-07-22] MED LIST changes: +DULO30CA9 PO; +MAGICMW SSP; +MELO7.5T35 PO; +OXYC-517 PO; -PROHANCE 279.3MG/ML 15ML VIAL As Ordered ONE
== END ==
LOC: M PLARAD 10:26
PROVIDERS: ATTEND Internal Medicine Hematology & Oncology
DX: C20 Malignant neoplasm of rectum (principal)
CPT/HCPCS: 78815; A9552

== ENCOUNTER → 2024-07-24 | Outpatient (CLI) | payer MEDICARE ==
[~2024-07-24] VITALS: Ht 170.2 cm; Wt 72.4 kg
[2024-07-24 10:01] VITALS: BP 142/93; O2SAT 98
== END ==
LOC: M PAL 09:43
PROVIDERS: ATTEND Physician Assistant
DX: C20 Malignant neoplasm of rectum (principal); G62.0 Drug-induced polyneuropathy; T45.1X5A Adverse effect of antineoplastic and immunosuppressive drugs, initial encounter; F41.9 Anxiety disorder, unspecified; Z79.69 Long term (current) use of other immunomodulators and immunosuppressants; Z79.899 Other long term (current) drug therapy; Z88.0 Allergy status to penicillin; Z88.1 Allergy status to other antibiotic agents; Z88.2 Allergy status to sulfonamides; Z88.5 Allergy status to narcotic agent; Z88.8 Allergy status to other drugs, medicaments and biological substances; Z91.013 Allergy to seafood

== ENCOUNTER 2024-08-08 09:53 | Emergency (ER) | payer MEDICARE ==
[~2024-08-08] VITALS: Ht 170.2 cm; Wt 75.9 kg
[2024-08-08 12:30] LABS: KETONE, URINE AUTO RFX NEGATIVE (NEGATIVE); LEUKOCYTE ESTERASE UR AUTO RFX NEGATIVE (NEGATIVE); MUCUS, URINE RFX SMALL (NEGATIVE); NITRITE, URINE AUTO RFX NEGATIVE (NEGATIVE); RBC, URINE AUTO RFX 0 /HPF (0-3); SQUAM EPITHELIAL CELL UR AURFX 0 /HPF (0-6); WBC, URINE AUTO RFX 1 /HPF (0-3)
[2024-08-08 20:06] VITALS: BP 136/84; TEMP 98; O2SAT 97
== END 2024-08-08 20:07 | disposition home or self-care (01) ==
LOC: M ED 09:53
DX: M48.48XA Fatigue fracture of vertebra, sacral and sacrococcygeal region, initial encounter for fracture (principal); M51.26 Other intervertebral disc displacement, lumbar region; F41.9 Anxiety disorder, unspecified; M47.817 Spondylosis without myelopathy or radiculopathy, lumbosacral region; M26.609 Unspecified temporomandibular joint disorder, unspecified side; C18.9 Malignant neoplasm of colon, unspecified; Z88.0 Allergy status to penicillin; Z88.2 Allergy status to sulfonamides; Z88.1 Allergy status to other antibiotic agents; Z88.5 Allergy status to narcotic agent; Z88.8 Allergy status to other drugs, medicaments and biological substances; Z91.013 Allergy to seafood; Z79.899 Other long term (current) drug therapy

== ENCOUNTER → 2024-08-08 | Outpatient (CLI) | payer MEDICARE ==
[~2024-08-08] VITALS: Ht 170.2 cm; Wt 76.6 kg
[~2024-08-08] MED LIST changes: +PROP10TA56 PO
[2024-08-08 08:44] VITALS: BP 113/70; O2SAT 96
== END ==
LOC: M PAL 08:14
PROVIDERS: ATTEND Physician Assistant
DX: Z51.5 Encounter for palliative care (principal); D01.2 Carcinoma in situ of rectum; Z79.632 Long term (current) use of antitumor antibiotic; R20.2 Paresthesia of skin; Z79.891 Long term (current) use of opiate analgesic; Z88.0 Allergy status to penicillin; Z88.1 Allergy status to other antibiotic agents; Z88.2 Allergy status to sulfonamides; Z91.013 Allergy to seafood; Z88.8 Allergy status to other drugs, medicaments and biological substances; Z88.5 Allergy status to narcotic agent

== ENCOUNTER → 2024-08-27 | Outpatient (CLI) | payer MEDICARE ==
[~2024-08-27] MED LIST changes: +LEXA1TAB
== END ==
LOC: M WHC 12:18
PROVIDERS: ATTEND Specialist
DX: R22.42 Localized swelling, mass and lump, left lower limb (principal); C20 Malignant neoplasm of rectum

== ENCOUNTER → 2024-09-10 | Outpatient (CLI) | payer MEDICARE ==
[~2024-09-10] VITALS: Ht 170.2 cm; Wt 72.3 kg
[~2024-09-10] MED LIST changes: +MELO15TA28 PO; +PRIM50TA6 PO
[2024-09-10 09:18] VITALS: BP 117/77; O2SAT 100
== END ==
LOC: M PAL 08:37
PROVIDERS: ATTEND Physician Assistant
DX: Z51.5 Encounter for palliative care (principal); C20 Malignant neoplasm of rectum; Z92.21 Personal history of antineoplastic chemotherapy; Z79.891 Long term (current) use of opiate analgesic; G83.4 Cauda equina syndrome; R32 Unspecified urinary incontinence; G25.0 Essential tremor; Z88.5 Allergy status to narcotic agent; Z88.0 Allergy status to penicillin; Z88.1 Allergy status to other antibiotic agents; Z88.2 Allergy status to sulfonamides; Z91.013 Allergy to seafood; Z88.8 Allergy status to other drugs, medicaments and biological substances; Z79.899 Other long term (current) drug therapy

== ENCOUNTER → 2024-09-24 | Outpatient (CLI) | payer MEDICARE ==
[~2024-09-24] VITALS: Ht 170.2 cm; Wt 73.8 kg
[~2024-09-24] MED LIST changes: +B-12100010 PO; +CALC1TAB30 PO
[2024-09-24 10:05] VITALS: BP 143/84; O2SAT 99
== END ==
LOC: M PAL 09:53
PROVIDERS: ATTEND Physician Assistant
DX: Z51.5 Encounter for palliative care (principal); C20 Malignant neoplasm of rectum; Z92.21 Personal history of antineoplastic chemotherapy; Z79.891 Long term (current) use of opiate analgesic; Z88.0 Allergy status to penicillin; Z88.1 Allergy status to other antibiotic agents; Z88.2 Allergy status to sulfonamides; Z91.013 Allergy to seafood; Z88.5 Allergy status to narcotic agent; Z88.6 Allergy status to analgesic agent; Z79.899 Other long term (current) drug therapy

== ENCOUNTER → 2024-11-27 | Outpatient (REF) | payer MEDICARE ==
[~2024-11-27] MED LIST changes: +DULO1CAP6 PO; +LIDO1ADH93 TOP; -LIDO5DIS41 TOP; +OXYB-54 PO
[2024-11-27 19:03] LABS: CALCIUM LEVEL 8.9 MG/DL (8.3-10.6); CARBON DIOXIDE LEVEL 23 MMOL/L (20-31); CHLORIDE LEVEL 109 MMOL/L (98-107); CREATININE FOR GFR 0.72 MG/DL (0.55-1.30); GLOMERULAR FILTRATION RATE 89.9 (>39); POTASSIUM SERUM 3.7 MMOL/L (3.5-5.1); SODIUM LEVEL 145 MMOL/L (136-145)
[2024-11-27 19:05] LABS: TOTAL 25(OH) VITAMIN D 47.7 NG/ML (20.0-100.0); VITAMIN B12 LEVEL 643 PG/ML (211-911)
== END ==
LOC: M SFHCCAPE 08:24
PROVIDERS: ATTEND Physician Assistant Medical
DX: R71.8 Other abnormality of red blood cells (principal); R53.83 Other fatigue; Z79.899 Other long term (current) drug therapy

== ENCOUNTER → 2024-12-24 | Outpatient (REF) | payer MEDICARE ==
[~2024-12-24] MED LIST changes: +LORA1TAB23 PO; +TOPI-21 PO
[2024-12-24 11:11] LABS: PLATELET COUNT, AUTOMATED 164 10^3/uL (150-450)
[2024-12-24 11:30] LABS: INR 0.92
== END ==
LOC: M LAB REF 10:58
PROVIDERS: ATTEND Physician Assistant Surgical
DX: Z01.818 Encounter for other preprocedural examination (principal)

== ENCOUNTER → 2024-12-25 | Outpatient (CLI) | payer MEDICARE ==
[~2024-12-25] VITALS: Ht 167.6 cm; Wt 70.5 kg
[2024-12-25 10:02] VITALS: BP 133/87; O2SAT 97
== END ==
LOC: M PAL 09:43
PROVIDERS: ATTEND Physician Assistant
DX: Z51.5 Encounter for palliative care (principal); C20 Malignant neoplasm of rectum; Z92.21 Personal history of antineoplastic chemotherapy; Z79.891 Long term (current) use of opiate analgesic; Z88.0 Allergy status to penicillin; Z88.1 Allergy status to other antibiotic agents; Z88.2 Allergy status to sulfonamides; Z91.013 Allergy to seafood; Z88.5 Allergy status to narcotic agent; Z79.899 Other long term (current) drug therapy

== ENCOUNTER → 2025-01-10 | Outpatient (CLI) | payer MEDICARE | LOC: M PLAIMG 09:33 | PROVIDERS: ATTEND Physician Assistant Surgical | DX: M16.0 Bilateral primary osteoarthritis of hip (principal) ==

== ENCOUNTER → 2025-01-30 | Outpatient (CLI) | payer MEDICARE | LOC: M PLAIMG 07:07 | PROVIDERS: ATTEND Nurse Practitioner Family | DX: R01.1 Cardiac murmur, unspecified (principal); R20.9 Unspecified disturbances of skin sensation; R09.89 Other specified symptoms and signs involving the circulatory and respiratory systems ==

== ENCOUNTER → 2025-01-30 | Outpatient (CLI) | payer MEDICARE | LOC: M RAD 11:33 | PROVIDERS: ATTEND Physician Assistant Medical | DX: R20.9 Unspecified disturbances of skin sensation (principal) ==

== ENCOUNTER → 2025-02-10 | Outpatient (CLI) | payer MEDICARE | LOC: M WHC 10:31 | PROVIDERS: ATTEND Physician Assistant Medical | DX: Z12.31 Encounter for screening mammogram for malignant neoplasm of breast (principal) ==

== ENCOUNTER → 2025-02-12 | Outpatient (CLI) | payer MEDICARE ==
[~2025-02-12] MED LIST changes: +DICY20TA20 PO
== END ==
LOC: M ONCR 09:40
PROVIDERS: ATTEND General Practice
DX: C44.311 Basal cell carcinoma of skin of nose (principal); C20 Malignant neoplasm of rectum; R19.4 Change in bowel habit; Z92.21 Personal history of antineoplastic chemotherapy; Z92.3 Personal history of irradiation; Z88.0 Allergy status to penicillin; Z88.1 Allergy status to other antibiotic agents; Z88.2 Allergy status to sulfonamides; Z88.5 Allergy status to narcotic agent; Z79.1 Long term (current) use of non-steroidal anti-inflammatories (NSAID); Z79.899 Other long term (current) drug therapy